=== PATIENT | male | born 1950 | race Caucasian/White ===

== ENCOUNTER 2022-10-20 08:09 | Outpatient (CLI) | payer MEDICARE, SELFPAY | END 2022-10-20 08:10 | disposition home or self-care (01) | PROVIDERS: PCP Family Medicine; Visit Provider Family Medicine | DX: E66.01 Morbid (severe) obesity due to excess calories (principal); I10 Essential (primary) hypertension; E78.5 Hyperlipidemia, unspecified; Z13.0 Encounter for screening for diseases of the blood and blood-forming organs and certain disorders involving the immune mechanism; Z12.5 Encounter for screening for malignant neoplasm of prostate | CPT/HCPCS: 80048; 80061; 84153 ==

== ENCOUNTER 2023-12-28 11:36 | Outpatient (CLI) | payer MEDICARE, SELFPAY | END 2023-12-28 11:37 | disposition home or self-care (01) | PROVIDERS: PCP Family Medicine; Visit Provider Family Medicine | DX: I10 Essential (primary) hypertension (principal); E78.5 Hyperlipidemia, unspecified; E88.810 Metabolic syndrome; E66.01 Morbid (severe) obesity due to excess calories; D64.9 Anemia, unspecified; Z12.5 Encounter for screening for malignant neoplasm of prostate; Z13.89 Encounter for screening for other disorder | CPT/HCPCS: 80048; 80061; G0103 ==

== ENCOUNTER 2024-12-11 10:17 | Outpatient (CLI) | payer MEDICARE, SELFPAY ==
--- NOTE | 2024-12-11 11:49 | P.ANES_ITS ---
Anesthesia Charges Start Date/Time Anesthesia Start Date: 12/11/24 Anesthesia Start Time: 11:08 Stop Date/Time Anesthesia Stop Date: 12/11/24 Anesthesia Stop Time: 11:52 Coding CPT Codes CPT Codes: ANES LWR INTST NDSC NOS - 45898 ([id number]) P3 - PATIENT W/SEVERE SYS DISEASE, QK - CRITICAL CARE NURSE PRACTITIONER 2-4 CNCRNT ANES PROC, QX - CLOTH FINISHING RANGE BACK TENDER SVC W/ MD MED DIRECTION
--- NOTE | 2024-12-11 11:49 | W.ANESCHARGE ---
Anesthesia Charges Start Date/Time Anesthesia Start Date: 12/11/24 Anesthesia Start Time: 11:08 Stop Date/Time Anesthesia Stop Date: 12/11/24 Anesthesia Stop Time: 11:52 Coding CPT Codes CPT Codes: ANES LWR INTST NDSC NOS - 06956 ([id number]) P3 - PATIENT W/SEVERE SYS DISEASE, QK - CONSTRUCTION AND MAINTENANCE INSPECTOR 2-4 CNCRNT ANES PROC, QX - DAY CARE DIRECTOR SVC W/ MD MED DIRECTION
--- NOTE | 2024-12-11 11:55 | W.ANESCHARGE ---
Anesthesia Charges Start Date/Time Anesthesia Start Date: 12/11/24 Anesthesia Start Time: 11:08 Stop Date/Time Anesthesia Stop Date: 12/11/24 Anesthesia Stop Time: 11:52 Summary Extremes of Age - Over 70 or under 1: MDA Coding CPT Codes CPT Codes: ANES LWR INTST NDSC NOS - 09966 ([id number]) QK - CLINIC SCHEDULER 2-4 CNCRNT ANES PROC, QX - AIRCRAFT FUSELAGE FRAMER SVC W/ MD MED DIRECTION, P3 - PATIENT W/SEVERE SYS DISEASE Additional Codes: Summary - Extremes of Age - Over 70 or under 1: MDA ([id number])
--- OUTSIDE RECORDS SUMMARY | 2024-12-12 00:54 | XMS_ITS | Clinical Summary ---
Author Organization [facility] Address [address] [place] [id number] Care Team Providers Care Batch Attendant Name Role Phone Pcp, No Primary Care Provider Unavailabl e Allergies Active Allergy Reactions Criticality Noted Date Comments Amoxicillin 03/20/2000 rash Diclofenac 10/25/2006 hiccups ? Medications FISH OIL 1,000 MG CAPIndications:Imp otence of organic origin,Mixed hyperlipidemia 1 daily 0 7 Active VITAMIN C 500 MG TAB 2 daily 0 8 Active CALCIUM 500 MG TAB Once daily 0 8 Active VITAMIN B COMPLEX TAB Once daily 0 8 Active FLAXSEED OIL Once daily 0 8 Active aspirin 325 mg tablet Take 1 tablet by mouth once daily with a meal. 0 1 Active glucosamine-chondr oit-vit c-mn (GLUCOSAMINE CHONDROITIN MAXSTR) 500-400 mg Cap Take by mouth. Takes 2 daily 0 1 Active cholecalciferol (VITAMIN D) 1,000 unit capsule Take 1 capsule by mouth once daily. 0 1 Active vitamin e 400 unit capsule Take 1 capsule by mouth once daily. 0 2 Active triamcinolone (ARISTOCORT) 0.5 % ointment Apply topically to affected area(s) 3 times daily. 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 Resolved Problems Problem Noted Date Diagnosed Date Resolved Date terminal supervisor (current) use of anticoagulants 09/13/2007 10/20/2012 Tobacco use disorder 10/26/2006 013 Immunizations Immunization Administration Dates Next Due Influenza, IIV3 (Age >=3 years) 05/05/2012,04/09 Td (Age >=7 Years) 08/21/1997 Tdap 08/24/2007 Zoster (Zostavax-ZVL, live) 04/16/2011 Family History Medical History Relation Name Comments Arthritis Father Cancer-prostate Father around age 8 0 Diabetes Father mild Other Mother suddenly a t age 90 Cancer Other 1 none Heart Disease Other 2 none Relation Name Status Comments Father Alive 94 in 2006 Mother Alive 85 in 2006 Other 1 Other 2 Social History Tobacco Use Types Packs/Day Years Used Date Smoking Tobacco: Former Cigarettes 0.5 30 0 09/04/1977 - 09/05/2007 Smokeless Tobacco: Never Tobacco Cessation:Counseling Given: Yes Alcohol Use Standard Drinks/Week Comments Yes 5 (1 standard drink = 0.6 oz pur e alcohol) occas Social Connections Answer Date Recorded Frequency of Communication with Friends and Fami ly Not on file 06/22/2023 Sex and Gender Information Value Date Recorded Sex Assigned at Not on file Legal 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 Gender Identity Not on file Sexual Orientation Not on file 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 Not on file Not on file Not on file Obstetrics History Last Filed Vital Signs Vital Sign Reading Time Taken Comments Blood Pressure 136/82 10/20/2012 8:41 AM CDT Pulse 53 10/20/2012 8:24 AM CDT Temperature 36.9 C (98.4 F) 10/20/2012 8:04 AM CDT Respiratory Rate - - Oxygen Saturation 94% 10/20/2012 8:04 AM CDT Inhaled Oxygen Concentration - - Weight 171.8 kg (378 lb 11.2 oz) 10/20/2012 8:04 AM CDT Height 180.7 cm (5' 11.16) 10/20/2012 8:04 AM C DT Body Mass Index 52.58 10/20/2012 8:04 AM CDT Plan of Treatment Health Maintenance Due Date Last Done Comments Depression screening for age 12+ 1960 BMI (ht and wt on same day) for age 18+ 1966 Hepatitis C screening for ag e 18-79 1966 Pneumococcal series for age 50+ (1 of 1 - PCV) 1998 Zoster (shingles) series for age 50+ (2 of 3) 06/11/2011 04/16/2011 Tetanus booster 08/23/2017 08/24/2007, 08/21/1997 RSV vaccine for adults or (1 - 1-dose 75+ series) 2023 COVID-19 vaccine series ( - season) 2024 Influenza Vaccine (Season Ended) 2025 05/05/2012, 04/09/2011 Tdap Completed 08/24/2007 Hepatitis B series for 19+ Aged Out N o longer eligible based on patient's age to complete this topic Insurance [employer] MED[employer]ARE ADVANTAGE MR * Guarantor: ASHLI ROLLE Account Type Relation to Patient Date of Phone Billing Address Workers Comp 1950 [phone] (Work) [address] [place] [id number] [employer] Care Teams Batch Attendant Relationship Specialty Start Date End Date Pcp, No . PCP - General 07/17/13
== END 2024-12-11 10:18 | disposition home or self-care (01) ==
LOC: OP CLINIC 10:17
PROVIDERS: PCP Family Medicine; Visit Provider Internal Medicine
DX: Z12.11 Encounter for screening for malignant neoplasm of colon (principal); Z86.0100 Personal history of colon polyps, unspecified; K57.30 Diverticulosis of large intestine without perforation or abscess without bleeding; D12.2 Benign neoplasm of ascending colon
CPT/HCPCS: 00811; 45380; 99100; J2704; J3490

== ENCOUNTER 2025-05-31 08:58 | Outpatient (CLI) | payer MEDICARE, SELFPAY | END 2025-05-31 08:59 | disposition home or self-care (01) | PROVIDERS: PCP Family Medicine; Visit Provider Family Medicine | DX: E78.2 Mixed hyperlipidemia (principal); D64.9 Anemia, unspecified; E88.810 Metabolic syndrome; Z12.5 Encounter for screening for malignant neoplasm of prostate; Z13.21 Encounter for screening for nutritional disorder | CPT/HCPCS: 80053; 80061; 82607; G0103 ==